=== PATIENT | male | born 1995 | race American Indian/Alaskan Native ===

== ENCOUNTER 2018-12-16 00:22 | Emergency (ER) | payer SELFPAY ==
[2018-12-16 00:32] VITALS: BMI 21.4
[2018-12-16 00:37] VITALS: RESP 18; TEMP 98; O2SAT 98
--- NOTE | 2018-12-16 00:44 | ED PDOC ---
Arrival/HPI - General Historian: Patient - History of Present Illness Narrative History of Present Illness (Text): 12/16/18 00:41 23-year-old male with no significant past medical history, presents to the emergency room for headache, states that he was drinking alcohol tonight and had a verbal altercation with his mother. He c/o mild throbbing headache by his temples and his eyes. States that the police arrived and he was advised to come to the emergency room to be evaluated. He denies any other complaints. He reports no SI, HI, feeling depressed, fever, dizziness, trauma, injury, nausea, vomiting, URI symptoms, chest pain or shortness of breath. <Xochitl Knox PA-C - Last Filed: 12/16/18 01:40> <Paulino Schaefer - Last Filed: 12/16/18 01:56> - General Chief Complaint: Anxiety Time Seen by Provider: 12/16/18 00:30 Past Medical History - Psychiatric Hx Substance Use: Yes - Anesthesia Hx Anesthesia: No <Xochitl Knox PA-C - Last Filed: 12/16/18 01:40> Family/Social History Family/Social History: No Known Family HX Smoking Status: Light Smoker < 10 Cigarettes Daily Hx Alcohol Use: Yes Frequency of alcohol use: Few days per week Hx Substance Use: Yes Substance used: Marijuana <Xochitl Knox PA-C - Last Filed: 12/16/18 01:40> Allergies/Home Meds <Xochitl Knox PA-C - Last Filed: 12/16/18 01:40> <Paulino Schaefer - Last Filed: 12/16/18 01:56> Allergies/Adverse Reactions: Allergies No Known Allergies Allergy (Verified 12/16/18 00:31) Review of Systems - Review of Systems Constitutional: absent: Fatigue, Fevers Respiratory: absent: SOB, Cough Cardiovascular: absent: Chest Pain, Palpitations Gastrointestinal: absent: Abdominal Pain, Nausea, Vomiting Musculoskeletal: absent: Arthralgias, Back Pain, Neck Pain Skin: absent: Rash, Skin Lesions Neurological: Headache. absent: Dizziness Psychiatric: absent: Anxiety, Depression, Suicidal Ideation <Xochitl Knox PA-C - Last Filed: 12/16/18 01:40> Physical Exam Vital Signs Temp Pulse Resp BP Pulse Ox 12/16/18 00:34 98.0 F 91 H 18 150/83 98 Temperature: Afebrile Blood Pressure: Normal Pulse: Regular Respiratory Rate: Normal Appearance: Positive for: Well-Appearing, Non-Toxic, Comfortable, Other (+alcohol on pt's breath) Pain Distress: Mild Mental Status: Positive for: Alert and Oriented X 3 - Systems Exam Head: Present: Atraumatic, Normocephalic Pupils: Present: PERRL Extroacular Muscles: Present: EOMI Conjunctiva: Present: Normal Mouth: Present: Moist Mucous Membranes Neck: Present: Normal Range of Motion Respiratory/Chest: Present: Clear to Auscultation, Good Air Exchange. No: Respiratory Distress, Accessory Muscle Use Cardiovascular: Present: Regular Rate and Rhythm, Normal S1, S2. No: Murmurs Abdomen: No: Tenderness, Distention, Peritoneal Signs Back: Present: Normal Inspection Upper Extremity: Present: Normal Inspection. No: Cyanosis, Edema Lower Extremity: Present: Normal Inspection. No: Edema Neurological: Present: GCS=15, CN II-XII Intact, Speech Normal Skin: Present: Warm, Dry, Normal Color. No: Rashes Psychiatric: Present: Alert, Oriented x 3, Normal Insight, Normal Concentration <Xochitl Knox PA-C - Last Filed: 12/16/18 01:40> Vital Signs Temp Pulse Resp BP Pulse Ox 12/16/18 01:27 89 18 136/83 98 12/16/18 00:34 98.0 F 91 H 18 150/83 98 <Paulino Schaefer - Last Filed: 12/16/18 01:56> Medical Decision Making ED Course and Treatment: 12/16/18 00:43 Patient given tylenol po and reglan po. 12/16/18 01:40 On reevaluation, patient reports that his headache is improving and that he wants to go home. On exam, patient remains awake alert and oriented 3 in no acute distress. Speaking in full sentences, no tremors, walking in a steady gait. Advised to follow up with the clinic in 1-2 days without fail. Advised to drink plenty of water and rest. Return to the emergency room at any time for any new or worsening symptoms. Patient states he fully agrees with and understands discharge instructions. States that he agrees with the plan and disposition. Verbalized and repeated discharge instructions and plan. I have given the patient opportunity to ask any additional questions. - Medication Orders Current Medication Orders: Discontinued Medications Acetaminophen (Tylenol 325mg Tab) 975 mg PO STAT STA Stop: 12/16/18 00:38 Metoclopramide HCl (Reglan) 10 mg PO STAT STA Stop: 12/16/18 00:38 <Xochitl Knox PA-C - Last Filed: 12/16/18 01:40> - Medication Orders Current Medication Orders: Discontinued Medications Acetaminophen (Tylenol 325mg Tab) 975 mg PO STAT STA Stop: 12/16/18 00:38 Last Admin: 12/16/18 01:00 Dose: 975 mg MAR Pain/Vitals Document 12/16/18 01:00 OLIVIA (Rec: 12/16/18 01:00 [id number]) Pain Reassessment Is This A Pain ReAssessment? Yes Location Upper or Lower Upper Pain Location Body Social Psychologist Description Pressure Metoclopramide HCl (Reglan) 10 mg PO STAT STA Stop: 12/16/18 00:38 Last Admin: 12/16/18 01:01 Dose: 10 mg <Paulino Schaefer - Last Filed: 12/16/18 01:56> - PA / GEM SETTER / Resident Statement SANDOVAL has reviewed & agrees with the documentation as recorded. <Xochitl Knox PA-C - Last Filed: 12/16/18 01:40> - PA / GEM SETTER / Resident Statement SANDOVAL has reviewed & agrees with the documentation as recorded. <Paulino Schaefer - Last Filed: 12/16/18 01:56> Disposition/Present on Arrival - Present on Arrival Any Indicators Present on Arrival: No History of DVT/PE: No History of Uncontrolled Diabetes: No Urinary Catheter: No History of Decub. Ulcer: No History Surgical Site Infection Following: None - Disposition Have Diagnosis and Disposition been Completed?: Yes Disposition Time: :40 Patient Plan: Discharge <Xochitl Knox PA-C - Last Filed: 12/16/18 01:40> <Paulino Schaefer - Last Filed: 12/16/18 01:56> - Disposition Diagnosis: Alcohol intoxication, Headache Disposition: HOME/ ROUTINE Patient Problems: Current Active Problems Problem Status Onset Alcohol intoxication Acute Headache Acute Condition: IMPROVED Discharge Instructions (ExitCare): Alcohol Use - When Is Drinking a Problem?, Headache, Adult (DC) Additional Instructions: Thank you for letting us take care of you today. You were treated for headache, alcohol intoxication. The emergency medical care you received today was directed at your acute symptoms. Return to the Emergency Department if your symptoms worsen, do not improve, or if you have any other problems. Please call one of the physicians/clinics you have been referred to that are listed on the Patient Visit Information form that is included in your discharge packet. Bring any paperwork you were given at discharge with you along with any medications you are taking to your follow up visit. Our treatment cannot replace ongoing medical care by a primary care provider (PCP) outside of the emergency department. Thank you for allowing the [facility] team to be part of your care today. Referrals: [facility] [place] - Follow up with primary Forms: [facility] ([place]i), WORK NOTE
[2018-12-16 01:29] VITALS: BP 136/83; PULSE 89
== END 2018-12-16 02:03 | disposition home or self-care (01) ==
LOC: ED 00:22
DX: F10.129 Alcohol abuse with intoxication, unspecified (principal); R51 Headache; F17.210 Nicotine dependence, cigarettes, uncomplicated